=== PATIENT | female | born 1960 | race Caucasian/White ===

== ENCOUNTER 2017-08-26 15:48 | Emergency (ER) | payer OTHER ==
[2017-08-26] MEDS ORDERED: KETOROLAC TROMETHAMINE INJ 30 MG/ML VIAL IV ONE (16:10)
--- NOTE | 2017-08-26 16:10 | ED.PDOC ---
History of Present Illness - General Chief Complaint: Abdominal Pain Time Seen by Provider: 08/26/17 16:07 Information Source: patient - History of Present Illness Abdominal Pain Onset Location: RLQ, flank Pain Radiation: flank Quality: moderate Timing/Duration: 1-3 hours Improving Factors: nothing Worsening Factors: nothing Associated Symptoms: back pain, nausea/vomiting Review of Systems - Review of Systems Constitutional: States: see HPI EENTM: States: no symptoms reported Respiratory: States: no symptoms reported Cardiology: States: no symptoms reported Gastrointestinal/Abdominal: States: no symptoms reported Genitourinary: States: no symptoms reported Skin: States: no symptoms reported Neurological: States: no symptoms reported Endocrine: States: no symptoms reported Hematologic/Lymphatic: States: no symptoms reported Family Medical History - Family History Mother Living Status: Hx Family;Other: Aneurysm which led to a stroke Physical Exam - Physical Exam General Appearance: Alert, Obvious distress Eyes, Ears, Nose, Throat Exam: normal ENT inspection, TMs normal, pharynx normal Neck: non-tender, full range of motion, supple Respiratory: chest non-tender, normal breath sounds, no respiratory distress Progress - Progress Progress: 08/26/17 20:18 Laboratory Tests 08/26/17 08/26/17 08/26/17 18:20 19:30 19:30 WBC 11.5 H RBC 4.57 Hgb 13.2 Hct 39.9 MCV 87.2 MCH 28.9 MCHC 33.1 RDW 14.1 Plt Count 210 MPV 9.6 Absolute Neuts (auto) 8.80 H Absolute Lymphs (auto) 1.60 Absolute Monos (auto) 0.80 Absolute Eos (auto) 0.20 Absolute Basos (auto) 0.10 Neutrophils % 76.9 Lymphocytes % 13.7 L Monocytes % 7.3 Eosinophils % 1.3 Basophils % 0.8 Sodium 142 Potassium 4.2 Chloride 106 Carbon Dioxide 26 Anion Gap 14.2 BUN 25 H Creatinine 0.99 BUN/Creatinine Ratio 25.3 H Random Glucose 122 H Serum Osmolality 288.8 Calcium 11.4 H Urine Color Yellow Urine Appearance Cloudy Urine pH 7.0 Ur Specific [place] 1.020 Urine Protein Negative Urine Glucose (UA) Negative Urine Ketones Negative Urine Blood Moderate H Urine Nitrite Negative Urine Bilirubin Negative Urine Urobilinogen 0.2 Ur Leukocyte Esterase Negative Urine RBC 10-20 H Urine WBC 3-5 H Ur Epithelial Cells 0-1 Amorphous Sediment 3+ Urine Bacteria Rare Departure - Departure Clinical Impression: Renal colic on right side, Abdominal pain Disposition: Discharge to Home or Self Care Departure Forms: ED Discharge - Pt. Copy, Patient Portal Self Enrollment Instructions: DI for Abdominal Pain-Adult Referrals: Conrad Sanchez MD [Primary Care Provider] - 1-2 Weeks Home Medications: Ambulatory Orders Triamterene & Hydrochlorothiaz [Maxzide 75-50 mg] 1 tab PO DAILY 08/26/17 Zolpidem Tartrate [Ambien] 10 mg PO BEDTIME 08/26/17 Transfer to Outside Facility - Transfer Information Accepting Provider:: DR Fly DELONG Accepting Facility: [facility] Reason for Transfer: required specialist not available - [employer] RIGHT RENAL COLLECTING [employer]
[2017-08-26] MEDS ORDERED: PROMETHAZINE HCL INJ 12.5 MG in SODIUM CHLORIDE 0.9% 50ML 50 ML IVPB ONE (16:11)
[2017-08-26] MEDS ORDERED: PROMETHAZINE HCL INJ 25 MG/ML VIAL ONE ×2 (16:29→16:37)
[2017-08-26] MEDS ORDERED: SODIUM CHLORIDE 0.9% 50ML 50 ML ONE (16:37)
--- NOTE | 2017-08-26 17:44 | CT ---
EXAM: Abdoment/Pelvis w/o Contrast CLINICAL INDICATION: 56-year-old female. COMPARISON: None. EXAMINATION: CT of the abdomen and pelvis was performed without intravenous or oral contrast. Multiplanar reformatted images were provided. This exam was performed according to our departmental dose optimization program which includes use of automated exposure control, adjustment of the mA and/or kV according to patient size and/or use of iterative reconstruction technique. FINDINGS: Evaluation of solid organ pathology is limited secondary to lack of intravenous contrast. Within these limitations, the following observations are made. Chest: Evaluation through the lung bases reveals no focal opacity, pleural effusion or pneumothorax. Heart size is within normal limits. No pericardial effusion. Abdomen and pelvis: The liver, gallbladder, pancreas, spleen, and bilateral adrenal glands are within normal limits. Coarse calcification present within the LEFT renal pelvis compatible with nonobstructing calculus without hydronephrosis or hydroureter. Hydronephrosis and hydroureter the RIGHT renal pelvis secondary to calcification present at the level of the ureteropelvic junction measuring 8 x 7 mm, (series 2, image 42). The vessels are normal in caliber. No abdominopelvic lymph nodes are noted to be pathologically enlarged by CT measurement criteria. Diverticular disease without findings to suggest diverticulitis. The bowel is within normal limits without abnormal bowel wall thickness or bowel dilation. No free air. No free abdominopelvic fluid collections. The appendix is within normal limits. The osseous structures are within normal limits. Innumerable pelvic phleboliths. IMPRESSION: 1. Hydronephrosis and hydroureter the RIGHT renal pelvis secondary to calcification present at the level of the ureteropelvic junction measuring 8 x 7 mm. 2. Perinephric and periureteral stranding raise the concern for superimposed infectious process which cannot be excluded on a noncontrast CT examination. Please correlate with clinical findings and laboratory values. 3. Diverticular disease without findings to suggest diverticulitis. Electronically signed by: Lisa Agustin MD 08/26/2017 5:43 PM [employer]
[2017-08-26] MEDS ORDERED: fentaNYL CITRATE INJ 50 MCG/ML AMP IV ONE ×2 (18:24→20:21)
[2017-08-26 21:01] VITALS: BP 134/68; TEMP 98.1; O2SAT 98
== END 2017-08-26 21:10 | disposition short-term general hospital (02) ==
LOC: ER 15:48
DX: N20.1 Calculus of ureter (principal)
CPT/HCPCS: 36415; 74176; 80048; 81001; 85025; A4216; J1885; J2550; J3010

== ENCOUNTER → 2018-09-17 | Outpatient (CLI) | payer OTHER ==
--- NOTE | 2018-09-17 08:41 | US ---
Procedure: US LOWER EXTREMITY VEINS LIMITED/UNILATERAL/FOLLOW UP Exam Date: 09/17/2018 Ordering Provider: MILTON ZHANG Clinical Indication: PAIN IN RT LEG Comparison: None Real time ultrasound was utilized for evaluation of the deep veins of the Right lower extremity. Color Doppler and pulse Doppler analysis was performed, including B-mode/grayscale imaging, Doppler spectral analysis and color flow analysis. Real time visualization of the right lower extremity deep veins was accomplished. Note Specialist images recorded. The deep veins demonstrated no abnormal intraluminal signal. The pulse Doppler and color Doppler flow patterns demonstrated normal venous flow with respiratory variation. There was increased flow with distal augmentation maneuvers. IMPRESSION: No evidence of DVT in the right lower extremity. Electronically signed by: Andrew Yoo MD 09/17/2018 8:39 AM [employer]
== END ==
LOC: US 07:55
PROVIDERS: ATTEND Physician Assistant
DX: M79.604 Pain in right leg (principal)

== ENCOUNTER → 2018-09-19 | Outpatient (CLI) | payer OTHER ==
--- NOTE | 2018-09-19 10:37 | RAD ---
EXAM DESCRIPTION: Pelvis CLINICAL HISTORY: 58 years Female, M25.551 COMPARISON: None. TECHNIQUE: AP radiograph of the pelvis was performed. FINDINGS: The pelvic ring appears grossly intact on this single AP radiograph. No acute fracture or dislocation. Bilateral sacroiliac joints appear normal. Mild degenerative changes are identified in bilateral hip joints. The visualized lumbo-sacral spine demonstrates mild degenerative changes. IMPRESSION: Single AP radiograph of the pelvis demonstrates grossly intact pelvic ring. Mild bilateral hip osteoarthritis. Electronically signed by: Kathy Lozano MD 09/19/2018 10:35 AM [facility]
== END ==
LOC: RAD 08:46
PROVIDERS: ATTEND Orthopaedic Surgery
DX: M16.0 Bilateral primary osteoarthritis of hip (principal)

== ENCOUNTER → 2018-11-13 | Outpatient (CLI) | payer OTHER ==
--- NOTE | 2018-11-13 09:39 | MRI ---
Study: MRI of the Right Knee. Indication: TEAR OF MENISCUS Technique: Multiplanar, multi sequence MRI of the right knee was obtained without intravenous contrast. Comparison: None. Findings: ACL, PCL, lateral collateral ligament complex intact. MCL is lax and bowed indicating sequela of a remote MCL sprain. No acute tear. High-grade radial tearing and essentially complete transection posterior root attachment medial meniscus with 4 mm extrusion of the body. Degenerative signal posterior horn/root lateral meniscus without tear. Grade 2 and mild grade 3 chondral thinning throughout the medial compartment. Subtle grade 4 chondral fissuring and subchondral marrow change posteromedial margin lateral tibial plateau. Less pronounced grade 2 and mild grade 3 chondrosis throughout the remainder of the lateral compartment. Low-grade tendinosis and interstitial fissuring quadriceps tendon insertion. Low-grade tendinosis patellar tendon origin. Trace lateral patellar tilt and subluxation. TT-TG distance measures 20 mm. Patchy multifocal grade 4 chondrosis and subchondral marrow change throughout the patella and most pronounced throughout the superior aspects of the lateral patellar facet extending to the apex. Moderate size knee effusion. Mild thickening medial plica with a tiny effusion. No acute fracture. Impression: Radial transection posterior root attachment medial meniscus. Degenerative signal posterior horn lateral meniscus. Remote MCL sprain. 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 Moderate size knee effusion. Low-grade quadriceps and patellar tendinosis without tear. Additional findings as above. Electronically signed by: Bao Dangelo MD 11/13/2018 9:36 AM CDT
== END ==
LOC: MRI 06:54
PROVIDERS: ATTEND Orthopaedic Surgery
DX: S83.206D Unspecified tear of unspecified meniscus, current injury, right knee, subsequent encounter (principal); S83.411D Sprain of medial collateral ligament of right knee, subsequent encounter; M76.51 Patellar tendinitis, right knee; M76.891 Other specified enthesopathies of right lower limb, excluding foot; M22.41 Chondromalacia patellae, right knee

== ENCOUNTER 2019-01-14 05:29 | Day surgery (SDC) | payer OTHER ==
--- NOTE | 2019-01-07 08:33 | HP ---
CHIEF COMPLAINT: Right knee pain. HISTORY OF PRESENT ILLNESS: Katia is a 58-year-old female with a history of pain in the right knee. She has had pain going on for quite some time and has had injections. Unfortunately, she has ongoing pain that is unresponsive to conservative measures. We have talked about options and she has elected knee arthroscopy. After discussing the risks, benefits and alternatives to that, she has given informed consent. PAST SURGICAL HISTORY: 1. section x4. 2. Hysterectomy. 3. Foot surgery. 4. Kidney stone removal. MEDICATIONS: 1. Aleve. 2. Ambien. 3. Pantoprazole. ALLERGIES: NO KNOWN DRUG ALLERGIES. IMMUNIZATIONS: Up to date. FAMILY HISTORY: None pertinent to today's complaint. SOCIAL HISTORY: The patient does not drink, smoke or use any illicit drugs. REVIEW OF SYSTEMS: Negative except as indicated in the History of Present Illness. PHYSICAL EXAMINATION: VITAL SIGNS: Blood pressure 145/97. Pulse 72. Height 5'2". Weight 212 pounds. MENTAL STATUS: The patient is awake, alert, and is able to give a good history and participate in the physical. The patient is oriented to person, place and time. SKIN: Normal tone and turgor. MUSCULOSKELETAL: The right leg is very tender along the joint-line today. She has full extension and flexion is to about 125 degrees. She has no discernible effusion. She has no varus/valgus or anterior/posterior laxity. She does have some palpable crepitus throughout her range of motion today. She has no overall malalignment. She does have some palpable clicking with range of motion. She was playing some sports this weekend, so has a bruise in the medial aspect of the leg about 8 cm proximal to the joint-line. She also has one on the upper medial thigh. IMAGING: X-rays and MRI were done. There is some chondral thinning and potentially some degenerative tearing of the meniscus. ASSESSMENT: 1. Knee pain. PLAN: The plan at this point is for knee arthroscopy. She and I have talked at length about the risks, benefits and alternatives to that and informed consent has been obtained for that. #[id number] MTDD
[2019-01-14] MEDS ORDERED: LACTATED RINGERS 1,000 ML ONE (05:43)
[2019-01-14] MEDS ORDERED: SODIUM CHL 0.9% 100ML MINI-BAG 100 ML IVPB ONE (06:00)
[2019-01-14] MEDS ORDERED: ceFAZolin SODIUM 1 GM VIAL ONE ×2 (06:01→06:43)
[2019-01-14] MEDS ORDERED: VANCOMYCIN HCL INJ 1,000 MG VIAL IVPB ONE (06:43)
[2019-01-14] MEDS ORDERED: HYDROmorphone HCL INJ 2 MG/ML VIAL ONE (07:01)
[2019-01-14] MEDS ORDERED: MIDAZOLAM INJ 2 MG/2 ML VIAL ONE (07:02)
[2019-01-14] MEDS: BUPIVACAINE 0.5% 30 ML VIAL INJ ONE ×2 (07:53→08:22)
[2019-01-14] MEDS ORDERED: BUPIVACAINE LIPOSOME 13.3 MG/ML VIAL INJ ONE (08:10)
[2019-01-14] MEDS ORDERED: BUPIVACAINE 0.25% INJ 30 ML VIAL INJ ONE (08:17)
[2019-01-14] MEDS ORDERED: KETOROLAC TROMETHAMINE INJ 30 MG/ML VIAL IV ONE (10:00)
[2019-01-14] MEDS ORDERED: diphenhydrAMINE HCL 50 MG/ML VIAL IV ONE (10:00)
[2019-01-14] MEDS ORDERED: SODIUM CHLORIDE 0.9% 50 ML VIAL INJ ONE (10:00)
[2019-01-14] MEDS ORDERED: LIDOCAINE 1% 10 ML VIAL INJ ONE (10:00)
[2019-01-14] MEDS ORDERED: raNITIdine HCL INJ 25 MG/ML VIAL IV ONE (10:00)
[2019-01-14] MEDS ORDERED: DEXAMETHASONE INJ 10 MG/ML VIAL IV ONE (10:00)
[2019-01-14] MEDS ORDERED: PROPOFOL 200 MG/20 ML VIAL IV ONE (10:00)
[2019-01-14 10:46] VITALS: BP 129/69; TEMP 96.2; O2SAT 98
--- NOTE | 2019-01-15 11:10 | OP ---
DATE OF PROCEDURE: 01/14/19 PREOPERATIVE DIAGNOSIS: 1. Knee pain. POSTOPERATIVE DIAGNOSIS: 1. Osteoarthritis. PROCEDURE: 1. Debridement. 2. Arthroscopy. SURGEON: Sadiq Haley MD. DATABASE ADMINISTRATION PROJECT MANAGER: Dylan Romero CST, SA-C. ANESTHESIA: General anesthesia. COMPLICATIONS: None. FINDINGS: 1. Softening of the cartilage of the medial compartment. 2. Normal medial meniscus. 3. Normal ACL, normal PCL. 4. Full thickness defects and softening of the cartilage with fibrillation on the tibial plateau. 5. Normal lateral meniscus. 6. Normal lateral gutter. 7. Normal suprapatellar pouch. 8. Full thickness defect involving the cartilaginous surface of the patella. There are cartilaginous flaps. 9. Grade 3 cartilaginous changes on the femoral portion of the patellofemoral joint. 10. Normal medial gutter. INDICATION: Katia is a patient that has been having progressively worsening knee pain. Unfortunately, she has failed to gain relief with conservative measures. Because of that, she has requested operative intervention. After discussing the risks, benefits and alternatives to operative therapy, informed consent was obtained. PROCEDURE: The patient was brought to the Operating Room and placed in supine position. Anesthesia was induced and the patient's leg was sterilely prepped and draped. Following prepping and draping, standard anteromedial and anterolateral portals were established. Diagnostic arthroscopy was carried out with the above findings. Following diagnostic arthroscopy, attention was then focused on the lateral compartment. A 3.5 mm full radius shaver was used to debride the cartilage. An accessory superolateral portal was made. Following that, a 3.5 mm full radius shaver was used to debride the patella surface. Both the lateral compartment and patellofemoral compartment were thoroughly probed to ensure stable base of cartilage. The wound was thoroughly irrigated and closed with Nylon suture. Sterile dressings were placed. The patient was awoken from anesthesia. POSTOPERATIVE PLAN: The patient will be nonweightbearing and will followup with us in two days. #[id number] [facility]
== END 2019-01-14 10:31 | disposition home or self-care (01) ==
LOC: AMB 05:29
PROVIDERS: ATTEND Orthopaedic Surgery
DX: M17.11 Unilateral primary osteoarthritis, right knee (principal); I10 Essential (primary) hypertension; Z90.710 Acquired absence of both cervix and uterus; Z87.442 Personal history of urinary calculi; Z79.899 Other long term (current) drug therapy
CPT/HCPCS: 01400; 29877; 80307; A4216; J0690; J1100; J1170; J1200; J1885; J2250; J2780; J3370; J3490; J7050; J7120